=== PATIENT | female | born 1980 | race African-American/Black ===

== ENCOUNTER 2016-05-19 10:23 | Emergency (ER) | payer SELFPAY ==
[2016-05-19] MEDS ORDERED: methylPREDNISolone Sod Succ/PF 125 MG/2 ML VIAL ONE (10:39)
--- NOTE | 2016-05-19 10:59 | ERRECORD ---
[facility] EMERGENCY RECORD HPI EXTREMITY (10:38 RWAG) CHIEF COMPLAINT: Patient presents for evaluation of pain, to the right shoulder. HISTORIAN: History provided by patient, Hx Lupus. "out of prednisone". MECHANISM OF INJURY: Unknown mechanism. LOCATION: Symptoms are localized, most severe in the right shoulder. QUALITY: Described as similar to previous episodes. SEVERITY: Maximum severity of symptoms mild, Currently symptoms are mild, Maximum severity of pain rated as 8/10, Current severity of pain rated as 8/10. TIME COURSE: Patient unable to describe onset of symptoms, There has been no change in the patient's symptoms over time. ASSOCIATED WITH: No associated symptoms. EXACERBATED BY: Patient's condition exacerbated by nothing. RELIEVED BY: Patient's condition relieved by prescription medications, prednisone. ROS (10:40 RWAG) CONSTITUTIONAL: Negative constitutional review of systems. EYES: Negative eye review of systems. ENT: Negative ears, nose, throat review of systems. CARDIOVASCULAR: Negative cardiovascular review of systems. RESPIRATORY: Negative respiratory review of systems. GI: Negative gastrointestinal review of systems. GENITOURINARY FEMALE: Negative genitourinary review of systems. MUSCULOSKELETAL: Negative musculoskeletal review of systems. SKIN: Negative skin review of systems. NEUROLOGIC: Negative neurologic review of systems. ENDOCRINE: Negative endocrine review of systems. HEMO/LYMPHATIC: Normal hematologic/lymphatic system review. ALLERGIC/IMMUNOLOGIC: Normal allergy/immunologic system review. PSYCHIATRIC: Negative psychiatric review of systems. NOTES: All systems reviewed, negative except as described above. PAST MEDICAL HISTORY (10:30 MCBE) MEDICAL HISTORY: Notes: chronic right shoulder pain, lupus, Past medical history includes history of hypertension. FEMALE SURGICAL HISTORY: removal of gall bladder, Surgical history of tubal ligation. PSYCHIATRIC HISTORY: No previous psychiatric history. SOCIAL HISTORY: Patient denies alcohol use, Patient denies drug use, Patient has no smoking history. FAMILY HISTORY: Paternal history of cardiac disease:, Hypertension, Maternal history of cardiac disease, Hypertension. KNOWN ALLERGIES No Known Drug Allergies &a-1R&a+25V*p+0X*p8521W*c202B*c15G*c2P*p-0X&a-25V&a+1R Name: Aris Bedolla : 1980 F35 MedRec: [id number] AcctNum: [id number] Prepared: Sat May 19, 2016 12:31 by Interface Page 1 of 3 pMD [facility] EMERGENCY RECORD CURRENT MEDICATIONS (10:28 MCBE) predniSONE: TABLET : Strength - 5 mg : ORAL Patient Dose: 2 3 times a day. Cartia XT: CAPSULE, EXT RELEASE 24 HR : Strength - 180 mg : ORAL Patient Dose: 1 tab(s) Oral once a day. hydroxychloroquine: TABLET : Strength - 200 mg : ORAL Patient Dose: 2 tab(s) Oral once a day. VITAL SIGNS (10:27 MCBE) VITAL SIGNS: BP: 153/67, Pulse: 88, Resp: 18, Temp: 97.7 (Oral), Pain: 8, O2 sat: 100 on Room Air, Time: 05/19/2016 10:27. PHYSICAL EXAM (10:40 RWAG) CONSTITUTIONAL: Vital signs reviewed. HEAD: Head exam normal. EYES: Eye exam normal. ENT: ENT exam normal. NECK: Neck exam normal. RESPIRATORY CHEST: Respiratory and chest exam normal. CARDIOVASCULAR: Cardiovascular assessment normal. ABDOMEN FEMALE: Abdominal exam normal. BACK: Back exam normal. UPPER EXTREMITY: Upper extremity exam included findings of inspection normal, Range of motion limited, Right shoulder:, active range of motion limited, Passive range of motion causes pain. LOWER EXTREMITY: Lower extremity exam normal. NEURO: Neuro exam normal. SKIN: Skin exam normal. LYMPHATIC: Lymphatic exam normal. PSYCHIATRIC: Psychiatric exam normal. MEDICATION ADMINISTRATION SUMMARY Drug Name: Solu-MEDROL injection, Dose Ordered: 125 mg, Route: Intramuscular, Status: Given, Time: 10:45 05/19/2016, Detailed record available in Medication Service section. PROBLEM LIST No recorded problems DIAGNOSIS (10:37 RWAG) FINAL: PRIMARY: lupus. PRESCRIPTION (10:36 RWAG) predniSONE oral: TABLET : 10 mg : ORAL : Quantity: 3 Unit: tab(s) Route: ORAL Schedule: once a day (in the morning) &a-1R&a+25V*p+0X*o9955Z*c202B*c15G*c2P*p-0X&a-25V&a+1R Name: Aris Bedolla : 1980 F35 MedRec: [id number] AcctNum: [id number] Prepared: Sat May 19, 2016 12:31 by Interface Page 2 of 3 pMD [facility] EMERGENCY RECORD Dispense: 90 Unit: tab(s) May substitute. Refills: 2 . NOTES: No Refills. DISPOSITION PATIENT: Disposition Type: Discharge, Disposition: *Discharge Home, Disposition Transport: Car, Condition: Improved. (10:37 RWNEELA) Patient left the department. (10:54 JENN) Ortega: JENN=SARAH Medina Jason MCBE=Bobbi Singletary RWAG=MD Leonardo, James &a-1R&a+25V*p+0X*g3351Y*c202B*c15G*c2P*p-0X&a-25V&a+1R Name: Aris Bedolla : 1980 F35 MedRec: [id number] AcctNum: [id number] Prepared: Rogerio May 19, 2016 12:31 by Interface Page 3 of 3 pMD MTDD
--- NOTE | 2016-05-19 11:02 | PICIS ---
[facility] EMERGENCY RECORD TRIAGE (10:28 MCBE) TRIAGE NOTES: chronic shoulder pain. patient ran out of prescription steroids. (10:28 MCBE) PATIENT: NAME: Aris Bedolla, AGE: 35, GENDER: female, : Sat1980, TIME OF GREET: Sat May 19, 2016 10:24, PREFERRED LANGUAGE: Northern [place], ETHNICITY: Not or , ECODE BILLING MAP: [facility], SSN: [id number], Zip Code: [address], KG WEIGHT: 82.10, PHONE: , , , PERSON ID: [id number]. (10:28 MCBE) COMPLAINT: RIGHT SHOULDER PAIN. (10:28 MCBE) ADMISSION: URGENCY: 4 Non Urgent, ADMISSION SOURCE: Home, TRANSPORT: CAR, BED: ER -03. (10:28 MCBE) IMMUNIZATIONS: Flu vaccine not up to date, Tetanus immunization up to date. (10:30 MCBE) SIRS SCORING: Heart Rate 55-109 (0), Temp range 96.8-101.1 (0), respiratory rate 12-24 (0), Mental Status altered: no (0), Infection or Suspected Infection: No. (10:30 MCBE) TRIAGE SCREENING: Patient denies suicidal ideation, Patient denies presence of domestic violence. (10:30 MCBE) PROVIDERS: TRIAGE NURSE: Bobbi Singletary. (10:28 MCBE) VITAL SIGNS: BP 153/67, Pulse 88, Resp 18, Temp 97.7, (Oral), Pain 8, O2 Sat 100, on Room Air, Time 05/19/2016 10:27. (10:27 MCBE) PREVIOUS VISIT ALLERGIES: No Known Drug Allergies. (10:28 MCBE) No Known Drug Allergies. (10:30 MCBE) KNOWN ALLERGIES No Known Drug Allergies CURRENT MEDICATIONS (10:28 MCBE) predniSONE: TABLET : Strength - 5 mg : ORAL Patient Dose: 2 3 times a day. Cartia XT: CAPSULE, EXT RELEASE 24 HR : Strength - 180 mg : ORAL Patient Dose: 1 tab(s) Oral once a day. hydroxychloroquine: TABLET : Strength - 200 mg : ORAL Patient Dose: 2 tab(s) Oral once a day. VITAL SIGNS (10:27 MCBE) VITAL SIGNS: BP: 153/67, Pulse: 88, Resp: 18, Temp: 97.7 (Oral), Pain: 8, O2 sat: 100 on Room Air, Time: 05/19/2016 10:27. NURSING ASSESSMENT: EXTREMITY UPPER (10:30 MCBE) CONSTITUTIONAL: Complex assessment performed, Patient arrives ambulatory, Gait steady, History obtained from patient, Patient appears comfortable, Patient cooperative, Patient alert, Oriented to person, place and time, Skin warm, Skin dry, Skin normal in color, Mucous membranes pink, Mucous membranes moist, Patient is &a-1R&a+25V*p+0X*e3259U*c202B*c15G*c2P*p-0X&a-25V&a+1R Name: Aris Bedolla : 1980 F35 MedRec: [id number] AcctNum: [id number] Prepared: Sat May 19, 2016 12:36 by Interface Page 1 of 5 pMD [facility] EMERGENCY RECORD well-groomed. PAIN: constant, on a scale 0-10 patient rates pain as 8. NONVERBAL PAIN: Non-Verbal pain assessment findings include: No non-verbal complaints while at rest (0), Non-Verbal complaints present with movement (1), Facial Grimaces not present at rest (0), Facial grimaces present with movement (1), Bracing not present at rest (0), Bracing not present with movement (0), Restlessness not present at rest (0), Restlessness not present with movement (0), Rubbing not present at rest (0), Rubbing not present with movement (0), Result: 2. LEFT UPPER EXTREMITY: Left upper extremity assessment findings include capillary refill less than 2 seconds, Skin color normal to hand, Skin temperature to hand warm, Distal sensation intact, Muscle tone normal, radial pulse is +3, brachial pulse is +3, Inspection findings include: No pressure ulcer to the shoulder, Inspection findings include no pressure ulcer to the elbow, Inspection findings include no pressure ulcer. RIGHT UPPER EXTREMITY: Right upper extremity assessment findings include capillary refill less than 2 seconds, Skin color normal to hand, Skin temperature to hand warm, Distal sensation intact, Muscle tone normal, radial pulse is +3, brachial pulse is +3, Inspection findings include no deformity, Inspection findings include: No pressure ulcer to the shoulder, Inspection findings include no pressure ulcer to the elbow, Inspection findings include no pressure ulcer, Inspection findings include no swelling, Notes: no loss of rom. NURSING PROCEDURE: DISCHARGE NOTE (10:45 JPAR) DISCHARGE: Patient discharged to home, ambulating with assistance, driving self, unaccompanied, Summary of Care printed/ provided, Patient requested and was provided an electronic copy of Discharge Instructions, Transition record given to patient, Discharge instructions given to patient, Simple or moderate discharge teaching performed, Prescriptions given and instructions on side effects given, Name of prescription(s) given: Prednisone, Medication reconciliation form given, Above person(s) verbalized understanding of discharge instructions and follow-up care, Patient treated and evaluated by physician. BELONGINGS: Belongings and valuables with patient at time of discharge include:, Belongings remain with patient, Valuables remain with patient. SAFETY: Side rails up, Cart/Stretcher in lowest position, Call light within reach, Hospital ID band on. MEDICATION ADMINISTRATION SUMMARY Drug Name: Solu-MEDROL injection, Dose Ordered: 125 mg, Route: Intramuscular, Status: Given, Time: 10:45 05/19/2016, Detailed record available in Medication Service section. &a-1R&a+25V*p+0X*l0663Y*c202B*c15G*c2P*p-0X&a-25V&a+1R Name: Aris Bedolla : 1980 F35 MedRec: [id number] AcctNum: [id number] Prepared: Sat May 19, 2016 12:36 by Interface Page 2 of 5 pMD [facility] EMERGENCY RECORD MEDICATION SERVICE Solu-MEDROL injection: Order: Solu-MEDROL injection (methylprednisolone sod succ) - Dose: 125 mg : Intramuscular Schedule: Now Ordered by: James Patterson MD Entered by: James Patterson MD Sat May 19, 2016 10:35 , Acknowledged by: Bobbi Singletary Sat May 19, 2016 10:38 Documented as given by: Jeovanny Medina RN Sat May 19, 2016 10:45 Patient, Medication, Dose, Route and Time verified prior to administration. IM medication, Medication administered to right thigh, Patient appears Awake and alert- acceptable, Correct patient, time, route, dose and medication confirmed prior to administration, Patient advised of actions and side-effects prior to administration, Allergies confirmed and medications reviewed prior to administration, Patient in position of comfort, Side rails up, Cart in lowest position, Call light in reach. : Follow Up : Response assessment performed, No signs or symptoms of allergic reaction noted, Site inspection shows, No swelling at administration site, No drainage at administration site, Bleeding at site, No bruising noted at site, Dressing applied, Advised not to ambulate without assistance, Patient in position of comfort, Side rails up, Cart in lowest position, Call light in reach. (10:47 JPAR) HPI EXTREMITY (10:38 RWAG) CHIEF COMPLAINT: Patient presents for evaluation of pain, to the right shoulder. HISTORIAN: History provided by patient, Hx Lupus. "out of prednisone". MECHANISM OF INJURY: Unknown mechanism. LOCATION: Symptoms are localized, most severe in the right shoulder. QUALITY: Described as similar to previous episodes. SEVERITY: Maximum severity of symptoms mild, Currently symptoms are mild, Maximum severity of pain rated as 8/10, Current severity of pain rated as 8/10. TIME COURSE: Patient unable to describe onset of symptoms, There has been no change in the patient's symptoms over time. ASSOCIATED WITH: No associated symptoms. EXACERBATED BY: Patient's condition exacerbated by nothing. RELIEVED BY: Patient's condition relieved by prescription medications, prednisone. ROS (10:40 RWAG) CONSTITUTIONAL: Negative constitutional review of systems. EYES: Negative eye review of systems. ENT: Negative ears, nose, throat review of systems. CARDIOVASCULAR: Negative cardiovascular review of systems. &a-1R&a+25V*p+0X*h0287Z*c202B*c15G*c2P*p-0X&a-25V&a+1R Name: Aris Bedolla : 1980 F35 MedRec: [id number] AcctNum: [id number] Prepared: Rogerio May 19, 2016 12:36 by Interface Page 3 of 5 pMD [facility] EMERGENCY RECORD RESPIRATORY: Negative respiratory review of systems. GI: Negative gastrointestinal review of systems. GENITOURINARY FEMALE: Negative genitourinary review of systems. MUSCULOSKELETAL: Negative musculoskeletal review of systems. SKIN: Negative skin review of systems. NEUROLOGIC: Negative neurologic review of systems. ENDOCRINE: Negative endocrine review of systems. HEMO/LYMPHATIC: Normal hematologic/lymphatic system review. ALLERGIC/IMMUNOLOGIC: Normal allergy/immunologic system review. PSYCHIATRIC: Negative psychiatric review of systems. NOTES: All systems reviewed, negative except as described above. PAST MEDICAL HISTORY (10:30 MCBE) MEDICAL HISTORY: Notes: chronic right shoulder pain, lupus, Past medical history includes history of hypertension. FEMALE SURGICAL HISTORY: removal of gall bladder, Surgical history of tubal ligation. PSYCHIATRIC HISTORY: No previous psychiatric history. SOCIAL HISTORY: Patient denies alcohol use, Patient denies drug use, Patient has no smoking history. FAMILY HISTORY: Paternal history of cardiac disease:, Hypertension, Maternal history of cardiac disease, Hypertension. PHYSICAL EXAM (10:40 RWAG) CONSTITUTIONAL: Vital signs reviewed. HEAD: Head exam normal. EYES: Eye exam normal. ENT: ENT exam normal. NECK: Neck exam normal. RESPIRATORY CHEST: Respiratory and chest exam normal. CARDIOVASCULAR: Cardiovascular assessment normal. ABDOMEN FEMALE: Abdominal exam normal. BACK: Back exam normal. UPPER EXTREMITY: Upper extremity exam included findings of inspection normal, Range of motion limited, Right shoulder:, active range of motion limited, Passive range of motion causes pain. LOWER EXTREMITY: Lower extremity exam normal. NEURO: Neuro exam normal. SKIN: Skin exam normal. LYMPHATIC: Lymphatic exam normal. PSYCHIATRIC: Psychiatric exam normal. EVENTS TRANSFER: Triage to Emergency Emergency Room -03. (Sat May 19, 2016 10:28 MCBE) Removed from Emergency Emergency Room -03. (10:54 JPAR) PROBLEM LIST &a-1R&a+25V*p+0X*o9571P*c202B*c15G*c2P*p-0X&a-25V&a+1R Name: Aris Bedolla : 1980 F35 MedRec: [id number] AcctNum: [id number] Prepared: [facility] May 19, 2016 12:36 by Interface Page 4 of 5 pMD [facility] EMERGENCY RECORD No recorded problems DIAGNOSIS (10:37 RWAG) FINAL: PRIMARY: lupus. DISPOSITION PATIENT: Disposition Type: Discharge, Disposition: *Discharge Home, Disposition Transport: Car, Condition: Improved. (10:37 RWAG) Patient left the department. (10:54 JPAR) INSTRUCTION (10:37 RWAG) DISCHARGE: LUPUS. FOLLOWUP: Shakira TINOCO., [facility], [address] [place] [id number], [phone]. SPECIAL: Follow-up with your PCP. PRESCRIPTION (10:36 RWAG) predniSONE oral: TABLET : 10 mg : ORAL : Quantity: 3 Unit: tab(s) Route: ORAL Schedule: once a day (in the morning) Dispense: 90 Unit: tab(s) May substitute. Refills: 2 . NOTES: No Refills. IMAGING (10:48 [facility]) *SUPPLY CHARGE SHEET: Image captured from scanner. *DISCHARGE INSTRUCTIONS RECEIPT: Image captured from scanner. ADMIN DIGITAL SIGNATURE: SARAH Medina Jason. (10:53 JPAR) MD Patterson Richard. (12:28 RW) Ortega: JENN=SARAH Medina Jason MCBE=Bobbi Singletary RWAG=MD Patterson Richard &a-1R&a+25V*p+0X*t4168J*c202B*c15G*c2P*p-0X&a-25V&a+1R Name: Aris Bedolla : 1980 F35 MedRec: [id number] AcctNum: [id number] Prepared: Rogerio May 19, 2016 12:36 by Interface Page 5 of 5 pMD MTDD
== END 2016-05-19 10:45 | disposition home or self-care (01) ==
LOC: NAV ERS 10:23
DX: M32.9 Systemic lupus erythematosus, unspecified (principal); I10 Essential (primary) hypertension; Z98.51 Tubal ligation status
CPT/HCPCS: 96372; J2930

== ENCOUNTER 2016-05-27 21:54 | Emergency (ER) | payer SELFPAY ==
[2016-05-27] MEDS ORDERED: HYDROcodone/Acetaminophen 5/325 mg Tablet ONE (22:10)
[2016-05-27] MEDS ORDERED: methylPREDNISolone Sod Succ/PF 125 MG/2 ML VIAL ONE (22:10)
[2016-05-27 22:21] LABS: #Basophils 0.1 thou/uL (0.0-0.2); #Eosinphils 0.2 thou/uL (0.0-0.7); #Lymphocytes 2.5 thou/uL (1.20-3.40); #Monocytes 1.1 thou/uL (0.11-0.59); #Neutrophils 6.8 thou/uL (1.40-6.50); %Basophils 0.8 % (0.0-1.0); %Eosinophils 1.5 % (0.0-10.0); %Lymphocytes 23.3 % (21.0-51.0); %Monocytes 10.7 % (0.0-10.0); Hematocrit 37.5 % (36.0-47.0); Mean Platelet Volume 7.8 fL (7.4-10.4); Red Blood Cell (RBC) Count 4.34 mill/uL (4.20-5.40); White Blood Cell (WBC) Count 10.7 thou/uL (4.8-10.8)
[2016-05-27 22:27] LABS: Blood, Urine Large (Negative); Glucose, Urine (Dipstick) Negative (Negative); Ketone, Urine 15 mg/dL (Negative); Nitrite Negative (Negative); Protein, Urine (Dipstick) 100 mg/dL (Neg-Trace)
[2016-05-27 22:32] LABS: ALT (SGPT) 14 U/L (0-55); AST (SGOT) 17 U/L (5-34); Alkaline Phosphatase 66 U/L (40-150); Anion Gap 9 mmol/L (10-20); BUN (Urea Nitrogen) 11 mg/dL (7.0-18.7); Bilirubin, Total 0.7 mg/dL (0.2-1.2); Calc. Creatinine Clearance 0 mL/min (70-130); Calcium 8.6 mg/dL (7.8-10.44); Carbon Dioxide 26 mmol/L (22-29); Chloride 109 mmol/L (98-107); Estimated GFR-MDRD Greater than 90; Globulin 3.5 g/dL (2.4-3.5); Protein, Total 6.9 g/dL (6.0-8.3)
[2016-05-27 22:32] LABS: Bilirubin Negative (Negative)
[2016-05-27 22:33] LABS: Bacteria/HPF None Seen HPF (None Seen); RBC/HPF GREATER THAN 50-TNTC HPF (0-3); Squamous Epithelial None Seen HPF (0-3); WBC/HPF 0-3 HPF (0-3)
[2016-05-27] MEDS ORDERED: Ondansetron ODT 4 MG TAB ONE (22:38)
--- NOTE | 2016-05-27 23:43 | ERRECORD ---
[facility] EMERGENCY RECORD HPI GENERAL (22:53 PMYE) CHIEF COMPLAINT: Patient presents for evaluation of Body aches. HISTORIAN: History provided by patient. LOCATION: Arms and Legs. SEVERITY: Maximum severity of symptoms moderate, Currently symptoms are mild. TIME COURSE: Gradual onset of symptoms, Symptoms are worsening. ASSOCIATED WITH: Associated with 35 y/o F w/ hx of lupus presents w/ worsening joint and muscle pain in shoulders and arms and hips that she states is typical of lupus excerbation. RELIEVED BY: Patient's condition relieved by nothing. ROS (22:54 PMYE) CONSTITUTIONAL: Negative constitutional review of systems, Historian denies chills, denies fatigue, denies fever. EYES: Negative eye review of systems, Historian denies eye pain, denies eye redness, denies eye discharge. ENT: Negative ears, nose, throat review of systems, Historian denies dysphasia, denies epistaxis, denies otalgia, denies sore throat. CARDIOVASCULAR: Negative cardiovascular review of systems, Historian denies chest pain, denies dyspnea on exertion, denies syncope, denies palpitations. RESPIRATORY: Negative respiratory review of systems, Historian denies cough, denies shortness of breath, denies wheezing. GI: Negative gastrointestinal review of systems, Historian denies abdominal pain, denies constipation, denies diarrhea, denies nausea, denies vomiting. GENITOURINARY FEMALE: Negative genitourinary review of systems, Historian denies dysuria, denies urgency, denies vaginal bleeding, denies vaginal discharge. MUSCULOSKELETAL: Historian reports arthralgias, reports myalgias. SKIN: Negative skin review of systems, Historian denies rash, denies skin changes. NEUROLOGIC: Negative neurologic review of systems, Historian denies confusion, denies focal weakness, denies headache. PSYCHIATRIC: Negative psychiatric review of systems. PAST MEDICAL HISTORY (22:05 LHAL) MEDICAL HISTORY: Notes: chronic right shoulder pain, lupus, Past medical history includes history of hypertension. FEMALE SURGICAL HISTORY: removal of gall bladder, Surgical history of tubal ligation. PSYCHIATRIC HISTORY: No previous psychiatric history. SOCIAL HISTORY: Patient denies alcohol use, Patient denies drug use, Patient has no smoking history. FAMILY HISTORY: Paternal history of cardiac disease:, &a-1R&a+25V*p+0X*m3171F*c202B*c15G*c2P*p-0X&a-25V&a+1R Name: Aris Bedolla : 1980 F35 MedRec: [id number] AcctNum: [id number] Prepared: SatMay 28, 2016 00:32 by Interface Page 1 of 3 pMD [facility] EMERGENCY RECORD Hypertension, Maternal history of cardiac disease, Hypertension. KNOWN ALLERGIES No Known Drug Allergies CURRENT MEDICATIONS Cartia XT: CAPSULE, EXT RELEASE 24 HR : Strength - 180 mg : ORAL Patient Dose: 1 tab(s) Oral once a day. (22:03 LHAL) hydroxychloroquine: TABLET : Strength - 200 mg : ORAL Patient Dose: 2 tab(s) Oral once a day. (22:03 LHAL) predniSONE: TABLET : Strength - 10 mg : ORAL Patient Dose: 3 tab(s) Oral once a day (in the morning). (22:03 LHAL) methotrexate: POWDER (GRAM) : MISCELLANEOUS Patient Dose: once a day. (22:04 LHAL) VITAL SIGNS (21:56 LHAL) VITAL SIGNS: BP: 146/81 (Sitting), Pulse: 88 (Regular), Resp: 16 (Non-Labored), Temp: 97.9 (Oral), Pain: 7 (Constant), O2 sat: 98 on Room Air, Time: 05/27/2016 21:56. PHYSICAL EXAM (22:54 PMYE) CONSTITUTIONAL: Vital Signs Reviewed, Patient afebrile, Pulse normal, Blood pressure normal, Respiratory rate normal, Patient appears non toxic. HEAD: Head exam included findings of head atraumatic, normocephalic. EYES: Eye exam included findings of eyelids normal to inspection, Pupils equally round and reactive to light, Extraocular muscles intact. ENT: ENT exam normal, Pharynx exam normal, Uvula exam normal, Tonsil exam normal. NECK: Neck exam normal. RESPIRATORY CHEST: Respiratory and chest exam normal, Breath sounds clear, No wheezing, No rales. ABDOMEN FEMALE: Abdominal exam normal, Abdominal exam included findings of abdomen nontender, Bowel sounds normal. BACK: Back exam normal. NEURO: Neuro exam normal, [place] coma scale 15, Neuro exam findings include patient oriented to person, place and time, Speech normal. SKIN: Skin exam normal. PSYCHIATRIC: Psychiatric exam normal, Psychiatric exam included findings of patient oriented to person place and time, Normal affect. MEDICATION ADMINISTRATION SUMMARY &a-1R&a+25V*p+0X*b5954S*c202B*c15G*c2P*p-0X&a-25V&a+1R Name: Aris Bedolla : 1980 F35 MedRec: [id number] AcctNum: [id number] Prepared: SatMay 28, 2016 00:32 by Interface Page 2 of 3 pMD [facility] EMERGENCY RECORD Drug Name: Zofran ODT, Dose Ordered: 4 mg, Route: Oral, Status: Given, Time: 22:42 05/27/2016, Drug Name: Solu-MEDROL injection, Dose Ordered: 125 mg, Route: IV Push, Status: Given, Time: 22:14 05/27/2016, Drug Name: [place], Dose Ordered: 5-325 mg, Route: Oral, Status: Given, Time: 22:13 05/27/2016, Detailed record available in Medication Service section. DOCTOR NOTES (22:55 PMYE) TEXT: Labs appropriate. VSS. Pt improved after IV soulmedrol. Advised to increase home Prednisone from 30 to 60 x 3 days after discussion w/ specialist. Appropriate for outpt mgmt. PROBLEM LIST No recorded problems DIAGNOSIS (22:42 PMYE) FINAL: PRIMARY: lupus excerbation. PRESCRIPTION (22:42 PMYE) Zofran ODT: TABLET,DISINTEGRATING : 4 mg : ORAL : Quantity: 4 Unit: mg Route: ORAL Schedule: Dispense: 15 Unit: tab(s) May substitute. Refills: No Refills . NOTES: No Refills. DISPOSITION PATIENT: Disposition Type: Discharge, Disposition: *Discharge Home. (22:42 PMYE) Patient left the department. (22:58 [facility]) Ortega: LHAL=SARAH Che, Caitlin PMYE=DO Raza Paul &a-1R&a+25V*p+0X*s5615D*c202B*c15G*c2P*p-0X&a-25V&a+1R Name: Aris Bedolla : 1980 F35 MedRec: [id number] AcctNum: [id number] Prepared: SatMay 28, 2016 00:32 by Interface Page 3 of 3 pMD MTDD
--- NOTE | 2016-05-27 23:48 | PICIS ---
[facility] EMERGENCY RECORD TRIAGE (SatMay 27, 2016 22:02 LHAL) TRIAGE NOTES: BODY ACHES SINCE THIS AM. (SatMay 27, 2016 22:02 LHAL) PATIENT: NAME: Aris Bedolla, AGE: 35, GENDER: female, : Sat1980, TIME OF GREET: SatMay 27, 2016 21:55, PREFERRED LANGUAGE: Ivorian, ETHNICITY: Not or , ECODE BILLING MAP: [facility], SSN: [id number], Zip Code: [address], KG WEIGHT: 86.64, PHONE: , , , PERSON ID: [id number], PCP: Fariba TINOCO WADE. (SatMay 27, 2016 22:02 AL) COMPLAINT: BODY ACHES. (SatMay 27, 2016 22:02 LHAL) ADMISSION: URGENCY: 4 Non Urgent, ADMISSION SOURCE: Home, TRANSPORT: CAR, BED: ER -05. ([place] May 27, 2016 22:02 LHAL) ASSESSMENT: Assessment: BODY ACHES SINCE THIS AM, Symptoms began THIS AM. (22:05 LHAL) PAIN: Pain is constant, No aggravating factors, No relieving factors. (22:05 LHAL) IMMUNIZATIONS: Flu vaccine not up to date, Tetanus immunization up to date, Pneumococcal vaccine up to date, Notes: TOOK MOTRIN AT 2P. (22:05 LHAL) SIRS SCORING: Heart Rate 55-109 (0), Temp range 96.8-101.1 (0), respiratory rate 12-24 (0), Mental Status altered: no (0), Infection or Suspected Infection: No. (22:05 LHAL) TRIAGE SCREENING: Patient denies suicidal ideation, Patient denies presence of domestic violence. (22:05 LHAL) LMP: Last menstrual period: NOW. (22:05 LHAL) PROVIDERS: TRIAGE NURSE: Caitlin Che RN. (SatMay 27, 2016 22:02 LHAL) VITAL SIGNS: BP 146/81, (Sitting), Pulse 88, (Regular), Resp 16, (Non-Labored), Temp 97.9, (Oral), Pain 7, (Constant), O2 Sat 98, on Room Air, Time 05/27/2016 21:56. (21:56 LHAL) PREVIOUS VISIT ALLERGIES: No Known Drug Allergies. (SatMay 27, 2016 22:02 LHAL) No Known Drug Allergies. (22:05 LHAL) KNOWN ALLERGIES No Known Drug Allergies CURRENT MEDICATIONS Cartia XT: CAPSULE, EXT RELEASE 24 HR : Strength - 180 mg : ORAL Patient Dose: 1 tab(s) Oral once a day. (22:03 LHAL) hydroxychloroquine: TABLET : Strength - 200 mg : ORAL Patient Dose: 2 tab(s) Oral once a day. (22:03 LHAL) predniSONE: TABLET : Strength - 10 mg : ORAL Patient Dose: 3 tab(s) Oral once a day (in the morning). (22:03 LHAL) methotrexate: &a-1R&a+25V*p+0X*v2356R*c202B*c15G*c2P*p-0X&a-25V&a+1R Name: Aris Bedolla : 1980 F35 MedRec: [id number] AcctNum: [id number] Prepared: SatMay 28, 2016 00:38 by Interface Page 1 of 10 pMD [facility] EMERGENCY RECORD POWDER (GRAM) : MISCELLANEOUS Patient Dose: once a day. (22:04 LHAL) VITAL SIGNS (21:56 LHAL) VITAL SIGNS: BP: 146/81 (Sitting), Pulse: 88 (Regular), Resp: 16 (Non-Labored), Temp: 97.9 (Oral), Pain: 7 (Constant), O2 sat: 98 on Room Air, Time: 05/27/2016 21:56. NURSING ASSESSMENT: FOCUSED (22:02 LHAL) CONSTITUTIONAL: Patient arrives ambulatory, Gait steady, History obtained from patient, Patient appears, uncomfortable, Patient cooperative, Patient alert, Oriented to person, place and time, Skin warm, Skin dry, Skin normal in color, Mucous membranes pink, Mucous membranes moist, Patient is well-groomed, Patient complains of GENERALIZED BODY ACHES. PAIN: aching pain, GENERALIZED, Onset of pain THIS AM, constant, on a scale 0-10 patient rates pain as 7, TOOK MOTRIN AT 2P TODAY NOTHING SINCE, Pain exacerbated by nothing. NEURO: Focused neuro assessment findings include patient alert, cooperative, No facial droop noted, Speech coherent, no weakness, no numbness, No loss of consciousness. GCS: GCS Total: 15. RESPIRATORY: Focused respiratory assessment findings include breath sounds clear, to the left upper lobe, to the right upper lobe, to bilateral upper lobes, to the right middle lobe, to the left lower lobe, to the right lower lobe, to bilateral lower lobes, Notes: NO URI SYMPTOMS. ABDOMEN: Focused abdominal assessment findings include abdomen soft, non tender, no diarrhea, no complaint of nausea, no vomiting, Bowel sounds present. GENITOURINARY FEMALE: Focused genitourinary assessment not applicable. MUSCULOSKELETAL: Focused musculoskeletal assessment findings include normal range of motion, Notes: HAS RT SHOULDER PAIN, MUSCLE DISEASE, LUPUS PAIN LIMITED ROM DUE TO PAIN NO HX INJURY. LACERATION: Focused laceration assessment not applicable. SAFETY: Side rails up, Cart/Stretcher in lowest position, Call light within reach, Hospital ID band on. NURSING PROCEDURE: DISCHARGE NOTE (22:53 LHAL) DISCHARGE: Patient discharged to home, ambulating without assistance, family driving, accompanied by parent, Summary of Care printed/ provided, Patient requested and was provided an electronic copy of Discharge Instructions, Transition record given to patient, Discharge instructions given to patient, Simple or moderate discharge teaching performed, by Eva CHE RN, Prescriptions given and instructions on side effects given, Name of prescription(s) given: &a-1R&a+25V*p+0X*i1807F*c202B*c15G*c2P*p-0X&a-25V&a+1R Name: Aris Bedolla : 1980 F35 MedRec: [id number] AcctNum: [id number] Prepared: SatMay 28, 2016 00:38 by Interface Page 2 of 10 pMD [facility] EMERGENCY RECORD ZOFRAN, Medication reconciliation form given, and reviewed with patient, Above person(s) verbalized understanding of discharge instructions and follow-up care, Notes: DC HOME, FEELS MUCH BETTER, SKIN PINK W/D, NORMAL EVEN RESP, AMBULATES STEADY GAIT. BELONGINGS: Belongings and valuables with patient upon arrival to the Emergency Department include:. NURSING PROCEDURE: IV PATIENT IDENITIFIER: Patient actively involved in identification process, Patient's identity verified by patient stating name, Patient's identity verified by patient stating date, Patient's identity verified by hospital ID bracelet. (22:12 LHAL) IV SITE 1: IV therapy indicated for medication administration, IV established, to the left antecubital, using a 22 gauge catheter, in one attempt, IV site prepped with CHLOROPREP, Saline lock established, Flushed with normal saline (mls): 10 CC, Labs drawn at time of placement, labeled in the presence of the patient and sent to lab. (22:12 LHAL) FOLLOW-UP SITE 1: IV discontinued, due to patient being discharged, catheter intact. (22:41 LHAL) SAFETY: Side rails up, Cart/Stretcher in lowest position, Call light within reach, Hospital ID band on. (22:12 LHAL) NURSING PROCEDURE: NURSE NOTES NURSES NOTES: Patient examined by physician. (22:05 LHAL) Patient in no apparent distress, Patient resting quietly, Warm blanket given to patient. (22:25 LHAL) Patient re-evaluated by physician. (22:36 LHAL) NURSING PROCEDURE: URINE COLLECTION (22:22 LHAL) PATIENT IDENTIFIER: Patient actively involved in identification process, Patient's identity verified by patient stating name, Patient's identity verified by patient stating date, Patient's identity verified by hospital ID bracelet. URINE COLLECTION FEMALE: Urine collection indicated for BODY ACHES, Urine collected by mid-stream clean catch, Output amount (mL) 50, urine red in color, and cloudy, Specimen labeled in the presence of the patient and sent to lab, PINKISH URINE, PT ON MENSES. SAFETY: Side rails up, Cart/Stretcher in lowest position, Call light within reach, Hospital ID band on. ORDER DETAILS Order Name: CBC with Differential, Status: Active, Time: 22:07 05/27/2016, User: JUDSON, - Ordered for: DO Raza Paul, - Entered by: DO Raza Paul - Sun May 27, 2016 22:07, - Quantity: 1, Order Name: CK (CPK), Status: Active, Time: 22:07 05/27/2016, User: &a-1R&a+25V*p+0X*q8655N*c202B*c15G*c2P*p-0X&a-25V&a+1R Name: Aris Bedolla : 1980 F35 MedRec: [id number] AcctNum: [id number] Prepared: SatMay 28, 2016 00:38 by Interface Page 3 of 10 pMD [facility] EMERGENCY RECORD PMYE, - Ordered for: DO Raza Paul, - Entered by: DO Raza Paul - Sun May 27, 2016 22:07, - Quantity: 1, Order Name: Comprehensive Metabolic Panel, Status: Active, Time: 22:07 05/27/2016, User: PMYE, - Ordered for: DO Raza Paul, - Entered by: DO Raza Paul - Sun May 27, 2016 22:07, - Quantity: 1, Order Name: CRP (Inflamatory), Status: Active, Time: 22:07 05/27/2016, User: PMYE, - Ordered for: DO Raza Paul, - Entered by: DO Raza Paul - Sun May 27, 2016 22:07, - Quantity: 1, Order Name: Test, Urine (BHCG), Status: Active, Time: 22:07 05/27/2016, User: PMYE, - Ordered for: DO Raza Paul, - Entered by: DO Raza Paul - Sun May 27, 2016 22:07, - Quantity: 1, Order Name: Urinalysis w/ Rflx Microscopic, Status: Active, Time: 22:07 05/27/2016, User: PMYE, - Ordered for: DO Raza Paul, - Entered by: DO Raza Paul - Sun May 27, 2016 22:07, - Quantity: 1. MEDICATION ADMINISTRATION SUMMARY Drug Name: Zofran ODT, Dose Ordered: 4 mg, Route: Oral, Status: Given, Time: 22:42 05/27/2016, Drug Name: Solu-MEDROL injection, Dose Ordered: 125 mg, Route: IV Push, Status: Given, Time: 22:14 05/27/2016, Drug Name: Marvin, Dose Ordered: 5-325 mg, Route: Oral, Status: Given, Time: 22:13 05/27/2016, Detailed record available in Medication Service section. MEDICATION SERVICE Marvin: Order: Marvin (hydrocodone bitartrate/acetaminophen) - Dose: 5-325 mg : Oral Schedule: Now Ordered by: Fei Raza DO Entered by: DO Jeni Rajput May 27, 2016 22:09 , Acknowledged by: SARAH Cast May 27, 2016 22:12 Documented as given by: SARAH Cast May 27, 2016 22:13 Patient, Medication, Dose, Route and Time verified prior to administration. Amount given: 5/325 mg, Site: Medication administered P.O., Correct patient, time, route, dose and medication confirmed prior to administration, Patient advised of actions and side-effects prior to administration, Allergies confirmed and medications reviewed prior to administration, Patient in position of comfort, Side rails up, Cart &a-1R&a+25V*p+0X*r3376M*c202B*c15G*c2P*p-0X&a-25V&a+1R Name: Aris Bedolla : 1980 F35 MedRec: [id number] AcctNum: [id number] Prepared: SatMay 28, 2016 00:38 by Interface Page 4 of 10 pMD [facility] EMERGENCY RECORD in lowest position. : Follow Up : No signs or symptoms of allergic reaction noted, Decreased pain, Decreased symptoms. (22:53 LHAL) Solu-MEDROL injection: Order: Solu-MEDROL injection (methylprednisolone sod succ) - Dose: 125 mg : IV Push Ordered by: Fei Raza DO Entered by: DO Jeni Rajput May 27, 2016 22:12 , Acknowledged by: SARAH Cast May 27, 2016 22:14 Documented as given by: SARAH Cast May 27, 2016 22:14 Patient, Medication, Dose, Route and Time verified prior to administration. Amount given: 125 mg, IV SITE #1 IVP, initial medication, Slowly, Catheter placement confirmed via flush prior to administration, IV site without signs or symptoms of infiltration during medication administration, No swelling during administration, No drainage during administration, IV flushed after administration, Correct patient, time, route, dose and medication confirmed prior to administration, Patient advised of actions and side-effects prior to administration, Allergies confirmed and medications reviewed prior to administration, Patient in position of comfort, Side rails up, Cart in lowest position. : Follow Up : No signs or symptoms of allergic reaction noted, Decreased pain, Decreased symptoms, _IV SITE #1:_, Medication infusion discontinued, on Sun May 27, 2016 22:15, 5 minutes, ., Total amount infused: 125MG. (22:53 LHAL) Zofran ODT: Order: Zofran ODT (ondansetron) - Dose: 4 mg : Oral Schedule: Now Ordered by: Fei Raza DO Entered by: SARAH Noel May 27, 2016 22:45 Documented as given by: Caitlin Che RN [place] May 27, 2016 22:42 Patient, Medication, Dose, Route and Time verified prior to administration. Amount given: 4 MG, Site: Medication administered P.O., Correct patient, time, route, dose and medication confirmed prior to administration, Patient advised of actions and side-effects prior to administration, Allergies confirmed and medications reviewed prior to administration, Administered by RAMESH SMITH, Patient in position of comfort, Side rails up, Cart in lowest position, Family at bedside. : Follow Up : No signs or symptoms of allergic reaction noted. (22:53 LHAL) : Follow Up : Decreased nausea. (22:53 LHAL) HPI GENERAL (22:53 PMYE) CHIEF COMPLAINT: Patient presents for evaluation of Body aches. HISTORIAN: History provided by patient. LOCATION: [facility]. SEVERITY: Maximum severity of symptoms moderate, Currently symptoms are mild. &a-1R&a+25V*p+0X*y1550C*c202B*c15G*c2P*p-0X&a-25V&a+1R Name: Aris Bedolla : 1980 F35 MedRec: [id number] AcctNum: [id number] Prepared: SatMay 28, 2016 00:38 by Interface Page 5 of 10 pMD [facility] EMERGENCY RECORD TIME COURSE: Gradual onset of symptoms, Symptoms are worsening. ASSOCIATED WITH: Associated with 35 y/o F w/ hx of lupus presents w/ worsening joint and muscle pain in shoulders and arms and hips that she states is typical of lupus excerbation. RELIEVED BY: Patient's condition relieved by nothing. ROS (22:54 PMYE) CONSTITUTIONAL: Negative constitutional review of systems, Historian denies chills, denies fatigue, denies fever. EYES: Negative eye review of systems, Historian denies eye pain, denies eye redness, denies eye discharge. ENT: Negative ears, nose, throat review of systems, Historian denies dysphasia, denies epistaxis, denies otalgia, denies sore throat. CARDIOVASCULAR: Negative cardiovascular review of systems, Historian denies chest pain, denies dyspnea on exertion, denies syncope, denies palpitations. RESPIRATORY: Negative respiratory review of systems, Historian denies cough, denies shortness of breath, denies wheezing. GI: Negative gastrointestinal review of systems, Historian denies abdominal pain, denies constipation, denies diarrhea, denies nausea, denies vomiting. GENITOURINARY FEMALE: Negative genitourinary review of systems, Historian denies dysuria, denies urgency, denies vaginal bleeding, denies vaginal discharge. MUSCULOSKELETAL: Historian reports arthralgias, reports myalgias. SKIN: Negative skin review of systems, Historian denies rash, denies skin changes. NEUROLOGIC: Negative neurologic review of systems, Historian denies confusion, denies focal weakness, denies headache. PSYCHIATRIC: Negative psychiatric review of systems. PAST MEDICAL HISTORY (22:05 LHAL) MEDICAL HISTORY: Notes: chronic right shoulder pain, lupus, Past medical history includes history of hypertension. FEMALE SURGICAL HISTORY: removal of gall bladder, Surgical history of tubal ligation. PSYCHIATRIC HISTORY: No previous psychiatric history. SOCIAL HISTORY: Patient denies alcohol use, Patient denies drug use, Patient has no smoking history. FAMILY HISTORY: Paternal history of cardiac disease:, Hypertension, Maternal history of cardiac disease, Hypertension. PHYSICAL EXAM (22:54 PMYE) CONSTITUTIONAL: Vital Signs Reviewed, Patient afebrile, Pulse normal, Blood pressure normal, Respiratory rate normal, Patient appears non toxic. HEAD: Head exam included findings of head atraumatic, &a-1R&a+25V*p+0X*b1993K*c202B*c15G*c2P*p-0X&a-25V&a+1R Name: Aris Bedolla : 1980 F35 MedRec: [id number] AcctNum: [id number] Prepared: SatMay 28, 2016 00:38 by Interface Page 6 of 10 pMD [facility] EMERGENCY RECORD normocephalic. EYES: Eye exam included findings of eyelids normal to inspection, Pupils equally round and reactive to light, Extraocular muscles intact. ENT: ENT exam normal, Pharynx exam normal, Uvula exam normal, Tonsil exam normal. NECK: Neck exam normal. RESPIRATORY CHEST: Respiratory and chest exam normal, Breath sounds clear, No wheezing, No rales. ABDOMEN FEMALE: Abdominal exam normal, Abdominal exam included findings of abdomen nontender, Bowel sounds normal. BACK: Back exam normal. NEURO: Neuro exam normal, Joanna coma scale 15, Neuro exam findings include patient oriented to person, place and time, Speech normal. SKIN: Skin exam normal. PSYCHIATRIC: Psychiatric exam normal, Psychiatric exam included findings of patient oriented to person place and time, Normal affect. EVENTS TRANSFER: Triage to Emergency Emergency Room -05. ([place] May 27, 2016 22:02 LHAL) Removed from Emergency Emergency Room -05. (22:58 LHAL) DOCTOR NOTES (22:55 PMYE) TEXT: Labs appropriate. VSS. Pt improved after IV soulmedrol. Advised to increase home Prednisone from 30 to 60 x 3 days after discussion w/ specialist. Appropriate for outpt mgmt. PROBLEM LIST No recorded problems DIAGNOSIS (22:42 PMYE) FINAL: PRIMARY: lupus excerbation. DISPOSITION PATIENT: Disposition Type: Discharge, Disposition: *Discharge Home. (22:42 PMYE) Patient left the department. (22:58 LHAL) INSTRUCTION (22:43 PMYE) DISCHARGE: SLE LUPUS. FOLLOWUP: Shakira TINOCO., [facility], [address] [place] [address], [phone], Follow up with Primary Care Physician in 1-2 days. SPECIAL: Follow-up with your PCP. As discussed double your dose of your Prednisone for three days after discussion with your specialist. PRESCRIPTION (22:42 PMYE) &a-1R&a+25V*p+0X*r0352Z*c202B*c15G*c2P*p-0X&a-25V&a+1R Name: Aris Bedolla : 1980 F35 MedRec: [id number] AcctNum: [id number] Prepared: SatMay 28, 2016 00:38 by Interface Page 7 of 10 pMD [facility] EMERGENCY RECORD Zofran ODT: TABLET,DISINTEGRATING : 4 mg : ORAL : Quantity: 4 Unit: mg Route: ORAL Schedule: Dispense: 15 Unit: tab(s) May substitute. Refills: No Refills . NOTES: No Refills. IMAGING (22:55 LHAL) *DISCHARGE INSTRUCTIONS RECEIPT: Image captured from scanner. *SUPPLY CHARGE SHEET: Image captured from scanner. ADMIN DIGITAL SIGNATURE: DO Raza Paul. (22:44 PMYE) SARAH Che, Caitlin. (22:58 LHAL) DO Raza Paul. (SatMay 28, 2016 00:28 PMYE) RESULTS (22:55 PMYE) LABORATORY: Urine Microscopic Collection DT: [place] May 27, 2016 22:24, *RBC/HPF GREATER THAN 50-TNTC HPF, * - H , Range (0-3), WBC/HPF 0-3 HPF, Range (0-3), Squamous Epithelial None Seen HPF, Range (0-3), Bacteria/HPF None Seen HPF, Range (None Seen). Urinalysis w/ Rflx Microscopic Collection DT: [place] May 27, 2016 22:24, *Color [place] - H , Range (Yellow), Clarity Cloudy , Range (Clear), *Specific [place], Urine 1.038 - H , Range (1.002-1.036), pH, Urine 6.0 , Range (5.0-9.0), Leukocyte Negative , Range (Negative), Nitrite Negative , Range (Negative), *Protein, Urine (Dipstick) 100 - H mg/dL, Range (Neg-Trace), Glucose, Urine (Dipstick) Negative mg/dL, Range (Negative), *Ketone, Urine 15 - H mg/dL, Range (Negative), Urobilinogen 1.0 mg/dL, Range (0.2-1.0), Bilirubin Negative , Range (Negative), , *Blood, Urine Large - H , Range (Negative). Test, Urine (BHCG) Collection DT: [place] May 27, 2016 22:24, Test - Urine (BHCG) NEGATIVE , Range (NEGATIVE), Method of sensitivity- Indeterminant: results should be repeated, after 48 hours. Positive: results may be detected as early as 4-5 days before a first missed menses. Elimination of BHCG-, Elimination following first trimester D&C: 29-44 Days , Elimination following term : 8-24 Days , *Specific [place] 1.038 - H , Range (1.002-1.036), &a-1R&a+25V*p+0X*d0592Q*c202B*c15G*c2P*p-0X&a-25V&a+1R Name: Aris Bedolla : 1980 F35 MedRec: [id number] AcctNum: [id number] Prepared: SatMay 28, 2016 00:38 by Interface Page 8 of 10 pMD [facility] EMERGENCY RECORD A dilute urine specimen may, not contain scheduling representative levels of hCG. If is still, suspected, a first morning urine specimen OR a random blood specimen should, be obtained from the patient 48-72 hours later and re-tested. , . Comprehensive Metabolic Panel Collection DT: [place] May 27, 2016 22:16, Sodium 140 mmol/L, Range (136-145), Potassium 4.0 mmol/L, Range (3.5-5.1), *Chloride 109 - H mmol/L, Range (98-107), Carbon Dioxide 26 mmol/L, Range (22-29), *Anion Gap 9 - L mmol/L, Range (10-20), BUN (Urea Nitrogen) 11 mg/dL, Range (7.0-18.7), Creatinine 0.71 mg/dL, Range (0.6-1.1), Estimated GFR-MDRD Greater than 90 , Reference Range for Estimated GFR: Greater than 90, mL/min/1.73 m2 NOTE: The MDRD equation has not been validated for use, with the elderly (over 70 years of age), women, patients with, serious comorbid condition or persons with extremes of body size, muscle, mass, or nutritional status. , *Glucose 113 - H mg/dL, Range (70-105), Calcium 8.6 mg/dL, Range (7.8-10.44), Bilirubin, Total 0.7 mg/dL, Range (0.2-1.2), Protein, Total 6.9 g/dL, Range (6.0-8.3), NOTE: Plasma values are generally 0.3 to 0.5 g/dL higher than serum values, due to the presence of fibrinogen. , *Albumin 3.4 - L g/dL, Range (3.5-5.0), Globulin 3.5 g/dL, Range (2.4-3.5), *Alb/Glob Ratio 1.0 - L g/dL, Range (1.2-2.2), Alkaline Phosphatase 66 U/L, Range (40-150), AST (SGOT) 17 U/L, Range (5-34), ALT (SGPT) 14 U/L, Range (0-55). CRP (Inflammatory) Collection DT: [place] May 27, 2016 22:16, *CRP (Inflammatory) 3.51 - H mg/dL, Range (= or < 0.5). CK (CPK) Collection DT: [place] May 27, 2016 22:16, CK (CPK) 121 U/L, Range (29-168). CBC with Differential Collection DT: [place] May 27, 2016 22:16, White Blood Cell (WBC) Count 10.7 thou/uL, Range (4.8-10.8), Red Blood Cell (RBC) Count 4.34 mill/uL, Range (4.20-5.40), *Hemoglobin 11.5 - L g/dL, Range (12.0-16.0), Hematocrit 37.5 %, Range (36.0-47.0), Mean Corpuscular Volume 86.5 fl, Range (81.0-99.0), *Mean Corpuscular Hemoglobin 26.5 - L pg, Range (27.0-31.0), *Mean Corpuscular HGB CONC 30.7 - L g/dL, Range (32.0-36.0), &a-1R&a+25V*p+0X*u1995Q*c202B*c15G*c2P*p-0X&a-25V&a+1R Name: Aris Bedolla : 1980 F35 MedRec: [id number] AcctNum: [id number] Prepared: SatMay 28, 2016 00:38 by Interface Page 9 of 10 pMD [facility] EMERGENCY RECORD *RBC Distribution Width 15.1 - H %, Range (11.5-14.5), Platelet Count 301 thou/uL, Range (130-400), Mean Platelet Volume 7.8 fL, Range (7.4-10.4), %Neutrophils 63.8 %, Range (42.0-75.0), %Lymphocytes 23.3 %, Range (21.0-51.0), *%Monocytes 10.7 - H %, Range (0.0-10.0), %Eosinophils 1.5 %, Range (0.0-10.0), %Basophils 0.8 %, Range (0.0-1.0), *#Neutrophils 6.8 - H thou/uL, Range (1.40-6.50), #Lymphocytes 2.5 thou/uL, Range (1.20-3.40), *#Monocytes 1.1 - H thou/uL, Range (0.11-0.59), #Eosinphils 0.2 thou/uL, Range (0.0-0.7), #Basophils 0.1 thou/uL, Range (0.0-0.2). Ortega: LHAL=SARAH Che, Caitlin PMYE=DO Raza Paul &a-1R&a+25V*p+0X*u6070W*c202B*c15G*c2P*p-0X&a-25V&a+1R Name: Aris Bedolla : 1980 F35 MedRec: [id number] AcctNum: [id number] Prepared: SatMay 28, 2016 00:38 by Interface Page 10 of 10 pMD MTDD
== END 2016-05-27 22:53 | disposition home or self-care (01) ==
LOC: NAV ERS 21:54
DX: M32.9 Systemic lupus erythematosus, unspecified (principal); I10 Essential (primary) hypertension; Z79.899 Other long term (current) drug therapy
CPT/HCPCS: 80053; 81003; 81015; 81025; 82550; 85025; 86140; 96374; J2930; Q0162

== ENCOUNTER 2016-07-01 04:08 | Emergency (ER) | payer SELFPAY ==
[2016-07-01] MEDS ORDERED: methylPREDNISolone Sod Succ/PF 125 MG/2 ML VIAL ONE (04:33)
== END 2016-07-01 04:55 | disposition home or self-care (01) ==
LOC: NAV ERS 04:08
DX: M32.8 Other forms of systemic lupus erythematosus (principal); I10 Essential (primary) hypertension; Z79.899 Other long term (current) drug therapy
CPT/HCPCS: 96372; J2930

== ENCOUNTER 2017-07-12 18:47 | Emergency (ER) | payer SELFPAY ==
[2017-07-12] MEDS ORDERED: Lidocaine 1% 20 ML MDV ONE (18:58)
[2017-07-12] MEDS ORDERED: Ondansetron ODT 4 MG TAB ONE (19:39)
== END 2017-07-12 19:40 | disposition home or self-care (01) ==
LOC: NAV ERS 18:47
DX: L03.011 Cellulitis of right finger (principal); M32.9 Systemic lupus erythematosus, unspecified; I10 Essential (primary) hypertension
CPT/HCPCS: 99283; J2001; Q0162

== ENCOUNTER 2017-09-20 18:44 | Emergency (ER) | payer SELFPAY ==
[2017-09-20] MEDS ORDERED: predniSONE 20 MG TAB ONE (19:43)
== END 2017-09-20 19:47 | disposition home or self-care (01) ==
LOC: NAV ERS 18:44
DX: M32.9 Systemic lupus erythematosus, unspecified (principal); I10 Essential (primary) hypertension; Z79.52 Long term (current) use of systemic steroids; Z79.899 Other long term (current) drug therapy
CPT/HCPCS: 99283; J7506

== ENCOUNTER 2017-11-24 23:57 | Emergency (ER) | payer SELFPAY ==
[2017-11-25] MEDS ORDERED: methylPREDNISolone Sod Succ/PF 125 MG/2 ML VIAL ONE (00:14)
== END 2017-11-25 00:30 | disposition home or self-care (01) ==
LOC: NAV ERS 23:57
DX: M32.9 Systemic lupus erythematosus, unspecified (principal); I10 Essential (primary) hypertension; G89.29 Other chronic pain; M25.511 Pain in right shoulder; Z79.899 Other long term (current) drug therapy
CPT/HCPCS: 96372; J2930

== ENCOUNTER 2018-04-04 19:08 | Emergency (ER) | payer OTHER, SELFPAY | END 2018-04-04 19:55 | disposition home or self-care (01) | LOC: NAV ERS 19:08 | DX: S16.1XXA Strain of muscle, fascia and tendon at neck level, initial encounter (principal); S39.012A Strain of muscle, fascia and tendon of lower back, initial encounter; I10 Essential (primary) hypertension; Z79.899 Other long term (current) drug therapy; V89.2XXA Person injured in unspecified motor-vehicle accident, traffic, initial encounter | CPT/HCPCS: 99283 ==

== ENCOUNTER 2019-07-18 17:34 | Emergency (ER) | payer OTHER, SELFPAY ==
[2019-07-18] MEDS ORDERED: methylPREDNISolone Acetate 40 mg/ml Vial ONE (17:56)
[2019-07-18] MEDS ORDERED: traMADol HCl 50 MG TAB ONE (18:03)
== END 2019-07-18 18:20 | disposition home or self-care (01) ==
LOC: NAV ERS 17:34
DX: B02.9 Zoster without complications (principal); I10 Essential (primary) hypertension; Z79.899 Other long term (current) drug therapy
CPT/HCPCS: 96372; 99283; J1030

== ENCOUNTER 2020-11-11 22:19 | Emergency (ER) | payer MEDICAID ==
[2020-11-11 22:40] LABS: Bilirubin Negative (Negative); Blood, Urine Large (Negative); Clarity Cloudy (Clear); Glucose, Urine (Dipstick) Negative (Negative); Ketone, Urine Negative (Negative); Leukocyte Moderate (Negative); Nitrite Negative (Negative); Protein, Urine (Dipstick) 30 mg/dL (Neg-Trace); Specific Gravity, Urine 1.025 (1.005-1.030); Urobilinogen 0.2 mg/dL (Less than 2); pH, Urine 5.5 (5.0-9.0)
[2020-11-11 22:49] LABS: RBC/HPF 21-50 HPF (0-3)
[2020-11-11 22:53] LABS: Renal Epithelial 0-3 HPF (None Seen); Squamous Epithelial 0-3 HPF (0-3)
[2020-11-11] MEDS ORDERED: Cipro 250 MG TAB ONE (22:59)
[2020-11-11] MEDS ORDERED: Ondansetron ODT 4 MG TAB ONE (23:04)
== END 2020-11-11 23:12 | disposition home or self-care (01) ==
LOC: NAV ERS 22:19
DX: N39.0 Urinary tract infection, site not specified (principal); I10 Essential (primary) hypertension; Z79.899 Other long term (current) drug therapy
CPT/HCPCS: 81003; 81015; 99284; Q0162

== ENCOUNTER 2021-11-24 15:40 | Emergency (ER) | payer MEDICAID, OTHER | END 2021-11-24 16:19 | disposition home or self-care (01) | LOC: NAV ERS 15:40 | DX: J32.9 Chronic sinusitis, unspecified (principal); I10 Essential (primary) hypertension; Z79.899 Other long term (current) drug therapy | CPT/HCPCS: 99283 ==

== ENCOUNTER 2023-05-28 17:14 | Emergency (ER) | payer OTHER ==
[2023-05-28] MEDS ORDERED: Acetaminophen 325 MG TAB ONE (17:57)
== END 2023-05-28 18:35 | disposition home or self-care (01) ==
LOC: NAV ERS 17:14
DX: J10.1 Influenza due to other identified influenza virus with other respiratory manifestations (principal); I10 Essential (primary) hypertension
CPT/HCPCS: 87635; 87804; 99283

== ENCOUNTER 2023-10-23 19:01 | Emergency (ER) | payer SELFPAY ==
[2023-10-23] MEDS ORDERED: Ondansetron ODT 4 MG TAB ONE (19:42)
[2023-10-23] MEDS ORDERED: methylPREDNISolone Acetate 40 mg/ml Vial ONE (19:42)
== END 2023-10-23 20:07 | disposition home or self-care (01) ==
LOC: NAV ERS 19:01
DX: M32.9 Systemic lupus erythematosus, unspecified (principal); I10 Essential (primary) hypertension
CPT/HCPCS: 96372; 99283; J1030; Q0162

== ENCOUNTER 2025-03-11 21:18 | Emergency (ER) | payer BC, SELFPAY | END 2025-03-11 22:20 | disposition home or self-care (01) | LOC: NAV ERS 21:18 | DX: B34.9 Viral infection, unspecified (principal); I10 Essential (primary) hypertension; Z79.899 Other long term (current) drug therapy | CPT/HCPCS: 87081; 87428; 87430; 99283; Q0162 ==

== ENCOUNTER 2025-05-04 13:58 | Emergency (ER) | payer BC ==
[2025-05-04] MEDS ORDERED: Benzonatate 100 MG CAP ONE (15:17)
== END 2025-05-04 15:23 | disposition home or self-care (01) ==
LOC: NAV ERS 13:58
DX: J11.1 Influenza due to unidentified influenza virus with other respiratory manifestations (principal); I10 Essential (primary) hypertension; Z77.098 Contact with and (suspected) exposure to other hazardous, chiefly nonmedicinal, chemicals
CPT/HCPCS: 87428; 99283